=== PATIENT | female | born 1985 | race Asian ===

== ENCOUNTER 2018-04-17 08:46 | Emergency (ER) | payer BC ==
[~2018-04-17] VITALS: Ht 160 cm; Wt 60.8 kg
[2018-04-17 08:54] VITALS: Ht 160 cm; Wt 60.8 kg
[2018-04-17 09:39] LABS: UA SPECIFIC GRAVITY 1.015 (1.005-1.035); microscopic required? YES; urine erythrocyte 3+ (NEGATIVE)
[2018-04-17 10:17] LABS: BASOPHIL % 0.3 % (0-2); PLATELET COUNT 302 x10^3mcL (130-400); RED CELL DISTRIBUTION WIDTH 13.4 % (11.5-14.5)
[2018-04-17 11:53] VITALS: BP 112/77
== END 2018-04-17 12:12 | disposition home or self-care (01) ==
LOC: ED 08:46
PROVIDERS: Specialist
DX: O20.0 Threatened abortion (principal); Z3A.17 17 weeks gestation of pregnancy
CPT/HCPCS: 36415